=== PATIENT | male | born 1965 | race Caucasian/White ===

== ENCOUNTER 2016-09-30 15:04 | Inpatient (IN) ==
[2016-09-30] MEDS ORDERED: NS 1,000 ML IV ONE ×2 (15:27→15:28)
[2016-09-30 16:03] LABS: BASO% 0.2 % (0.0-0.8); EOS# 0.03 X1000 (0.0-0.7); EOS% 0.2 % (0.0-10.0); HEMATOCRIT 40.7 % (42.0-52.0); IMM GRAN# 0.06 X1000 (0.0-0.04); IMM GRAN% 0.3 % (0.0-0.5); LYMPH# 0.62 X1000 (1.2-3.4); LYMPH% 3.3 % (20.5-51.1); MANUAL DIFF NEEDED? NO; MCH 30.8 PG (27-31); MCHC 34.4 g/dL (33-37); MCV 89.6 FL (81-99); MONO# 1.56 X1000 (0.11-0.59); MONO% 8.2 % (1.7-9.3); MPV 10.2 FL (7.4-10.4); NEUT% 87.8 % (42.2-75.2); PLT 335 X1000 (130-400); RBC 4.54 XMIL (4.7-6.1)
[2016-09-30 16:20] LABS: AGAP 13; ALKALINE PHOSPHATASE 80 U/L (32-122); AMYLASE 26 U/L (20-200); BUN 29 mg/dL (8-22); CALCIUM 10.2 mg/dL (8.8-10.2); CHLORIDE 95 mmol/L (98-107); COSMO 279; GOT 14 U/L (10-34); GPT 7 U/L (10-44); LIPASE 22 U/L (13-60); POTASSIUM 3.6 mmol/L (3.5-5.1); SODIUM 136 mmol/L (136-145); TCO2 29 mmol/L (25-35); TOTAL PROTEIN 7.5 g/dL (6.3-8.3)
[2016-09-30 17:11] LABS: UR AMPHETAMINES QUAL NONE DETECTED (NONE DETECT); UR BARBITUATES QUAL NONE DETECTED (NONE DETECT); UR BENZODIAZEPIN QUAL NONE DETECTED (NONE DETECT); UR CANNABINOIDS QUAL NONE DETECTED (NONE DETECT); UR COCAINE QUAL NONE DETECTED (NONE DETECT); UR MDMA QUAL NONE DETECTED (NONE DETECT); UR METHADONE QUAL NONE DETECTED (NONE DETECT); UR METHAMPHETAMINE QUAL NONE DETECTED (NONE DETECT); UR OPIATES QUAL NONE DETECTED (NONE DETECT); UR OXYCODONE QUAL NONE DETECTED (NONE DETECT); UR PCP QUAL NONE DETECTED (NONE DETECT); UR TCA QUAL NONE DETECTED (NONE DETECT)
[2016-09-30 17:14] LABS: BILIRUBIN URINE NEGATIVE (NEGATIVE); BLOOD URINE NEGATIVE (NEGATIVE); CLARITY SL. CLOUDY (CLEAR); COLOR YELLOW; GLUCOSE URINE NEGATIVE (NEGATIVE); LEUKOCYTES URINE TRACE (NEGATIVE); NITRITE URINE NEGATIVE (NEGATIVE); PH URINE 6.5; PROTEIN URINE 2+(100 mg/dL) mg/dL (NEGATIVE); UROBILINOGEN URINE 4+(12 mg/dL)
[2016-09-30 17:17] LABS: URINE RBC <10 /HPF (<10); URINE WBC <10 /HPF (<10)
[2016-09-30 17:18] LABS: URINE CAST GRANULAR PRESENT /LPF; URINE CRYSTAL NONE SEEN /HPF; URINE CULTURE PL NEEDED? YES; URINE EPITHELIAL CELLS <10 /HPF (<10); URINE SOURCE CLEAN CATCH
--- NOTE | 2016-09-30 17:20 | EKG Report ---
Test Performed on : 09/30/2016 4:02:46 PM Test Reason : SOB Blood Pressure : / mmHG Vent. Rate : 093 BPM Atrial Rate : 096 BPM P-R Int : 140 ms QRS Dur : 098 ms QT Int : 362 ms P-R-T Axes : 085 083 075 degrees QTc Int : 450 ms Undetermined rhythm Otherwise normal ECG No previous ECGs available Unconfirmed Result
--- NOTE | 2016-09-30 17:40 | PROVIDER DOCUMENTATION ---
This chart was entered by Kulwant Burks Scribe, acting as scribe for Codey Alcantara MD. HPI-Abdominal Pain/GI Problem - General Chief Complaint: N/V/D Stated Complaint: SOB Time Seen by Provider: 09/30/16 15:26 Source: patient Allergies/Adverse Reactions: Patient Allergies Allergy/AdvReac Type Severity Reaction Status Date / Time No Known Allergies Allergy Verified 09/30/16 15:18 Home Medications: Home Medication List Medication Instructions Recorded Confirmed Last Taken Type NK [No Home Medications] 09/30/16 09/30/16 Unknown History - History of Present Illness-ABD Nature of Presenting Problems: Patient is a 51 yo M that presents with n/v/d, abdominal pain, fever/chills, and weight loss for a year but worse over the past month. hasn't seen a MD in 20 years. Reports no chest pain, shortness of breath, or cough. Abdominal Pain Onset Location: reports: generalized abdomen Quality of Pain: reports: aching, cramping Severity in ED: reports: moderate Onset/Duration: reports: gradual, other (months to a year) Timing: reports: still present, getting worse (past month) Activities at Onset: reports: none Modifying Factors: worse with: eating Associated Symptoms: reports: diarrhea, fatigue, fever/chills, malaise, muscle aches, nausea, vomiting. denies: chest pain, constipation, diaphoresis, dizziness, EENT symptoms, shortness of breath Similar Symptoms Previously?: No Recently seen or treated by another doctor?: No Review of Systems - Adult - REVIEW OF SYSTEMS - ADULT Constitutional: reports: chills, fever, fatique Eyes: reports: no symptoms reported Ears, Nose, Mouth & Throat: denies: ear pain, sinus problem, throat pain, throat swelling Cardiovascular: denies: chest pain, palpitations, syncope Respiratory: denies: cough, shortness of breath, wheezing Gastrointestinal: reports: abdominal pain, diarrhea, nausea, poor appetite, vomiting. denies: rectal bleeding Genitourinary: denies: dysuria, frequency, urgency Musculoskeletal: reports: joint pain, muscle aches, muscle weakness. denies: neck pain Integumentary: reports: no symptoms reported Neurological: reports: headache/migraines. denies: dizziness/vertigo Psychiatric: reports: no symptoms reported Endocrine: reports: no symptoms reported Hematologic/Lymphatic: reports: no symptoms reported Allergic/Immunologic: reports: no symptoms reported All Other Systems: Reviewed and Negative Past History - Adult - PAST MEDICAL HISTORY-ADULT Review of Records: reports: Old Records Reviewed, Nursing Assessment Review, Medications Reviewed - PRIOR SURGERIES/PROCEDURES Surgical/Procedure History: reports: reviewed, not pertinent - IMMUNIZATION STATUS Childhood Immunizations: See Nurse Assessment Flu Vaccine: See Nurse Assessment - FAMILY HISTORY Family History: reviewed, not pertinent - SOCIAL HISTORY Smoking: cigarettes, less than 1 pack/day Substance Use: marijuana Alcohol Use Frequency: occasionally Living Situation: family Physical Exam-General - PHYSICAL EXAM-ADULT Initial Vital Signs Reviewed: Yes - CONSTITUTIONAL General Appearance: alert, mild distress, thin (very), other (ill appearing) - EYES Eyes: PERRL/EOMI, pink conjunctivae - HEAD, EARS, NOSE, MOUTH & THROAT HENMT: normocephalic/atraumatic, other (poor dental hygiene, dry oral mucosa) - NECK Neck: full range of motion, normal inspection - RESPIRATORY Respiratory: lungs clear, normal breath sounds, no respiratory distress, no accessory muscle use - CARDIOVASCULAR Cardiovascular: no edema, no gallop, tachycardia - GASTROINTESTINAL (ABDOMEN) Abdominal Exam: normal bowel sounds, soft, no organomegaly, no pulsatile mass, guarding, tenderness (diffusley with soft touch) - MUSCULOSKELETAL Back Exam: no CVA tenderness, no vertebral tenderness Extremity: normal range of motion, normal inspection, no pedal edema - SKIN Integumentary: normal color, warm/dry - NEUROLOGIC Neurologic: toy stuffer II-XII nml as tested, no motor/sensory deficits - PSYCHIATRIC Psych/Mental Status: normal mood/affect, normal thought content, normal thought process, oriented x 3 Progress - PLAN OF CARE/RESULTS Progress/Plan/Lab Results: Vital Signs - 8 hr 09/30/16 15:13 Temperature 97.4 F L Pulse Rate 117 H Respiratory Rate 20 Blood Pressure 116/093 O2 Sat by Pulse Oximetry 97 Orders Category Date Time Status Saline Loc DIRECTED Care 09/30/16 15:27 Active NPO Diet 09/30/16 15:27 Active AMYLASE [CHEM] Stat Lab 09/30/16 15:27 Ordered CBC WITH ELECTRONIC DIFF [HEME] Stat Lab 09/30/16 15:27 Ordered COMPREHENSIVE METABOLIC PANEL [CHEM] Stat Lab 09/30/16 15:27 Ordered D-DIMER PL [COAG] Stat Lab 09/30/16 15:36 Ordered LIPASE [CHEM] Stat Lab 09/30/16 15:27 Ordered TROPONIN T Stat Lab 09/30/16 15:[address] W/POSS RFLX CULT [URINALYSIS] Stat Lab 09/30/16 15:27 Uncollected URINE DRUG SCREEN PL Stat Lab 09/30/16 15:27 Uncollected 0.9% Sodium Chloride Inj [Ns] 1,000 ml Med 09/30/16 15:28 Active IV 250 mls/hr 0.9% Sodium Chloride Inj [Ns] 1,000 ml Med 09/30/16 15:27 Active IV 999 mls/hr EKG [EKG] Stat Ther 09/30/16 15:27 Ordered Result Diagrams: 09/30/16 15:48 09/30/16 15:48 - EKG 1 Time of EKG reading by physician:: 16:03 EKG Read and Signed by:: Codey Alcantara EKG Interpretation (*Must complete 3 of following elements*): Normal Rate: 91 Rhythm: NSR [place]: normal QRS: normal MT Interval: normal ST Wave: normal - CT/MRI 1 CT Study: Abdomen, Pelvis, Thorax Impression: Abnormal (Per Radiology verbal - perforated bowel with free air.) - CONSULTS/PCP/HOSPITALIST Notification #1 *Consult/PCP/Hospitalist*: Dr. Ramirez Time Discussed: 18:10 Consult Disposition: Will see in ED - CHANGE OF SHIFT REPORT (ED Provider) Report Given and Care Transferred to:: Dr. Pacheco Time of Transfer: 18:00 Items Pending: Labs, CT/MRI Results, Other (Dispo) Departure - Departure Date of Disposition Decision: 09/30/16 Time of Disposition Decision: 18:07 DIAGNOSIS: Perforated abdominal viscus Disposition: ADMITTED INPATIENT 09 Certified Medical Emergency: Emergent Condition: Serious Referrals and Follow-Ups: None,PCP [Primary Care Provider] - - Critical Care Note This patient required my direct & personal management of CC.: Yes Total Time (mins): 35 Critical Care Statement: This patient required my direct personal management to treat or rule out processes, the absence of which, could potentiallly result in sudden, clinically significant life or limb threatening deterioration. This chart was documented by the indicated scribe, (Kulwant Burks, Scribe) and accurately reflects the services I performed and decisions made by me, Codey Alcantara MD, as attested by the provider's signature.
--- NOTE | 2016-09-30 18:05 | Diag Imaging Result Doc PS360 ---
EXAM: ABD/PELVIS/PULM ARTERIES INDICATION: Abd pain/CP/wt loss/N/V/D TECHNIQUE: COMPARISON: None. FINDINGS: CTA CHEST: There is no evidence of pulmonary embolism. There is trace atherosclerotic calcification of the aortic arch. There is no evidence of aortic aneurysm or dissection. The heart is not enlarged. There is no evidence of significant mediastinal or hilar lymphadenopathy. There are mild emphysematous changes at the lung apices. There is mild biapical fibrotic change. The lungs are grossly clear, otherwise. There is no evidence of pleural fluid collection or pneumothorax. ABDOMEN/PELVIS: There is significant free abdominal gas throughout the abdomen consistent with hollow visceral perforation. The colon is distended with gas. The source of the extraluminal gas is likely the colon, probably in the pelvis. However, the exact perforation point cannot be determined. There are several other thickened loops of small bowel in the pelvis indicating enteritis. The liver, spleen, kidneys, and pancreas are unremarkable. IMPRESSION: 1.Extraluminal free gas in the abdomen indicating perforated viscus, likely the colon. Please see above discussion. 2.Gaseous distention of the colon. 3.Thickened loops of small bowel in the pelvis suggesting enteritis. 4.No evidence of pulmonary embolism or other definite acute chest pathology. 5.Other incidental/nonacute findings detailed above. Electronically signed by Seb Amos 09/30/2016 6:02 PM
[2016-09-30] MEDS ORDERED: ZOSYN 3.375 GM/NS 3.375 GM/50 ML IVPB IV ONE (18:06)
[2016-09-30] MEDS ORDERED: NS 1,000 ML ONE (18:11)
[2016-09-30] MEDS ORDERED: XYLOCAINE-MPF 2% ONE (18:42)
[2016-09-30] MEDS ORDERED: DIPRIVAN 1% ONE (18:43)
[2016-09-30] MEDS ORDERED: VERSED ONE (18:43)
[2016-09-30] MEDS ORDERED: FENTANYL ONE (18:43)
[2016-09-30] MEDS ORDERED: QUELICIN (DOSE) ONE (18:44)
[2016-09-30] MEDS ORDERED: NORCURON ONE (18:44)
[2016-09-30] MEDS ORDERED: SODIUM CHLORIDE 0.9% 10 ML ONE ×2 (18:46→20:30)
--- NOTE | 2016-09-30 18:57 | HISTORY AND PHYSICAL ---
ADMITTING DIAGNOSIS: Free air. HISTORY OF PRESENT ILLNESS: A 51-year-old male who has not seen a physician in 20 years, presenting with a several month history of abdominal pain that is worse in the last day. He reports intense pain in his left lower quadrant, that he described as aching and cramping. Again, it has been going on for months, but is getting progressively worse. He has not seen a physician in 20 years. He does have a family history of colon cancer. He has never had a colonoscopy. He never reports having pain in this intensity before he was seen in emergency department. He had a CT scan that showed free air concerning for perforation. PAST MEDICAL HISTORY: None reported. PAST SURGICAL HISTORY: None. ALLERGIES: None. HOME MEDICATIONS: None. FAMILY HISTORY: Positive for colon cancer and lung cancer. SOCIAL HISTORY: Smokes cigarettes. Denies recreational drugs besides marijuana. Says that he drinks alcohol occasionally. REVIEW OF SYSTEMS: A full 10 point review of systems obtained, negative except as specified in HPI. PHYSICAL EXAMINATION: VITAL SIGNS: The patient is currently afebrile. Temperature 97.4, pulse is tachycardic at 117, respiratory rate 20 and nonlabored. Blood pressure 116 systolic. O2 saturation 100% on room air. GENERAL: No acute distress. male, but appears uncomfortable. HEENT: Normocephalic, atraumatic. Pupils equal, round, reactive to light. Mucous membranes moist. Poor dentition noted. Oropharynx benign. NECK: Supple. Trachea midline. CARDIOVASCULAR: Tachycardic. LUNGS: Grossly clear. ABDOMEN: Soft, nondistended. Voluntary guarding noted. Tenderness to palpation in the left lower quadrant with localized peritonitis. EXTREMITIES: Moves all extremities. NEUROLOGIC: Grossly intact. SKIN: No signs of jaundice. VASCULAR: All extremities perfused. LABORATORY: White blood cell count is 18, hematocrit 40, platelet count 335. Remainder of labs reviewed. CT scan independently reviewed and radiology report reviewed. Patient does have what appears to be perforated hollow viscus. Given the findings on CT scan it is concerning this might be a perforated sigmoid colon. ASSESSMENT AND PLAN: A 51-year-old male with pneumoperitoneum. Pneumoperitoneum: At this time, patient has been started on antibiotics. Per the ER he has been started on Zosyn, will continue that. Given his free air and the concerning images on CT scan and his tachycardia, the patient is starting to develop sepsis in a septic like picture. We will need to transfer the patient over to [facility] for definitive treatment. I placed initial orders and returned to discuss with the patient the need for exploratory laparotomy with possible colostomy. He voices understanding. cc: Placido Ramirez MD
[2016-09-30] MEDS ORDERED: ZOFRAN ONE (20:29)
[2016-09-30] MEDS ORDERED: DECADRON ONE (20:29)
[2016-09-30] MEDS ORDERED: MARCAINE 0.25% PF ONE (20:30)
[2016-09-30] MEDS ORDERED: EXPAREL 1.3% ONE (20:30)
[2016-09-30] MEDS ORDERED: NEO-SYNEPHRINE ONE (21:06)
[2016-09-30 22:03] LABS: URINE SOURCE CLEAN CATCH
[2016-09-30] MEDS ORDERED: LR 1,000 ML ONE (22:19)
[2016-09-30] MEDS: MORPHINE ONE ×2 (22:20→22:27)
[2016-09-30 23:58] LABS: URINE EPITHELIAL CELLS <10 /HPF (<10); URINE RBC <10 /HPF (<10); URINE WBC <10 /HPF (<10)
[2016-09-30 23:59] LABS: BILIRUBIN URINE NEGATIVE (NEGATIVE); BLOOD URINE NEGATIVE (NEGATIVE); CLARITY CLEAR (CLEAR); COLOR YELLOW; GLUCOSE URINE NEGATIVE (NEGATIVE); LEUKOCYTES URINE NEGATIVE (NEGATIVE); NITRITE URINE NEGATIVE (NEGATIVE); PH URINE 6.5; PROTEIN URINE TRACE mg/dL (NEGATIVE); SP GRAVITY URINE > 1.030
[2016-10-01] MEDS ORDERED: ZOFRAN IV PRN (00:58)
[2016-10-01] MEDS: ZOSYN 3.375 GM/NS 3.375 GM/50 ML IVPB IV SCH ×4 (02:33→20:17)
[2016-10-01] MEDS: SODIUM CHLORIDE 0.9% INJ SCH ×2 (02:34→14:00)
[2016-10-01] MEDS: PEPCID IV SCH ×2 (02:34→13:59)
[2016-10-01] MEDS: OFIRMEV 1000 MG/ISOTONIC SOLN 1,000 MG/100 ML BOTTLE IV PRN ×2 (03:26→11:03)
[2016-10-01] MEDS: LR 1,000 ML IV SCH ×2 (03:30→11:02)
--- NOTE | 2016-10-01 05:56 | OPERATIVE NOTE ---
PROCEDURE DATE: 09/30/2016 PREOPERATIVE DIAGNOSIS: Perforated hollow viscus. POSTOPERATIVE DIAGNOSIS: Perforated sigmoid colon. PROCEDURE: 1. Exploratory laparotomy. 2. Open sigmoid resection with end colostomy (Demarco's procedure). SURGEON: Placido Ramirez MD. CONVERTER OPERATOR: None. ANESTHESIA: General tracheal. INTRAOPERATIVE FINDINGS: Inflamed sigmoid colon. Significant amount of purulence on examination noted in the abdomen. COMPLICATIONS: None at time of dictation. ESTIMATED BLOOD LOSS: 100 mL. SPECIMENS: Sigmoid colon. DRAINS: A 10-Irish drain left in the pelvis. BRIEF HISTORY: The patient is a 51-year-old male, who had not seen a doctor in 20 years, presenting to the ER in a septic-like picture with leukocytosis, tachycardia, and abdominal pain. Was found to have pneumoperitoneum, concerning for perforated hollow viscus and exam was consistent with this. It was felt that the patient needed to have surgery. The risks, benefits, and alternatives were discussed. All questions answered. DESCRIPTION OF PROCEDURE: After informed consent was obtained, the patient was brought to the operative theatre, transferred to operating table, placed in supine position. General endotracheal anesthesia was then performed without complications. A formal time-out was then performed confirming patient, date, and procedure. All were in agreement. At that time attention was given to the abdomen. A standard midline incision was made to enter into the abdomen. Upon entering the abdomen, we did release significant amount pneumoperitoneum. We also encountered a significant amount of purulence, in excess of 200-300 mL of purulence. We irrigated out the abdomen copiously. We found dense fibrinous exudate of process occurring in the right lower quadrant and left lower quadrant. There is significant number of inflamed loops of small bowel stuck down to the sigmoid colon and also to the lateral wall. With blunt dissection we dissected out the small bowel from the sigmoid colon very carefully. We did not have any obvious enterotomies. We noticed the sigmoid colon was the area where the most intense inflammatory process was. We noticed what appeared to be a perforation on the lateral aspect of the sigmoid colon. We mobilized the sigmoid colon off the white line of Toldt, although we did this mostly both blunt dissection. I was unable to clearly identify the ureter, but I felt so I was able to feel it and preserved it in its entirety as best I could. Again, intense inflammatory process made this difficult. We mobilized the sigmoid colon all the way up to the splenic flexure. We selected an area of the sigmoid colon and in descending colon that appeared to be not significantly disease burden. We made a window in the mesocolon and fired a RAFI stapler across this to free this up. We then used the LigaSure to take down the mesentery, down to the sigmoid colon, down to the rectum. There was a perforation noted and we placed a stapler distal to this. There is initial misfire and we had to place a second staple across the rectal stump with good results. I oversewed the area and placed 2 Prolene stitches on the lateral aspect of the rectum for identification later. Given the dense inflammatory process and the friability of the tissue, and the concern that this rectal stump might perforate, we left a drain tunneled from the left lower quadrant down to the pelvis. We irrigated out the abdomen copiously. We examined the remainder the bowel. It appeared to be viable. I did not see any other disease burden. There was what initially felt like a dense inflammatory mass versus a colonic malignancy noted in the sigmoid colon. This appeared, once we had removed the specimen, to be more like the perforation, inflamed tissue. No after we irrigated out the abdomen copiously, we found a position the left lower quadrant for an ostomy. At the lateral border of the rectus we made a circular skin incision and were able to make a window in the abdominal wall that enough size to accommodate 2 fingerbreadths. We then brought the sigmoid colon proximal end up through this without twisting it. We confirmed we did not twist it. We closed the abdomen in layers using chromic for the peritoneum and looped PDS for the fascia. We irrigated out the skin incision and closed with ray. We secured the drain in place with a drain stitch. We then created and matured our ostomy in the left lower quadrant with 3-0 Vicryl with good results. It was patent. I was able to stick my finger all the way through the ostomy, down through the fascia. There was good blood supply noted. The patient tolerated procedure well and remained in the operating room for anesthesia place a tap block postoperatively. We will manage him like a sepsis-like picture. Keep him on IV antibiotics. Keep him resuscitated. I discussed this with the family and the potential for complications, given the dense inflammatory process. cc: Placido Ramirez MD
[2016-10-01 06:21] LABS: BASO% 0.2 % (0.0-0.8); HEMATOCRIT 37.1 % (42.0-52.0); HEMOGLOBIN 12.8 g/dL (14.0-18.0); IMM GRAN# 0.09 X1000 (0.0-0.04); IMM GRAN% 0.5 % (0.0-0.5); LYMPH# 0.34 X1000 (1.2-3.4); LYMPH% 1.9 % (20.5-51.1); MANUAL DIFF NEEDED? NO; MCH 31.2 PG (27-31); MCHC 34.5 g/dL (33-37); MCV 90.5 FL (81-99); MONO# 1.12 X1000 (0.11-0.59); MONO% 6.2 % (1.7-9.3); MPV 10.6 FL (7.4-10.4); NEUT% 91.2 % (42.2-75.2); PLT 341 X1000 (130-400)
--- NOTE | 2016-10-01 06:23 | PROGRESS NOTE ---
DATE: 10/01/2016 SUBJECTIVE: Patient doing okay. Feels better since his operation. No major issues reported. OBJECTIVE: Vital Signs: Patient is currently afebrile. His vital signs are stable. General: No acute distress. Resting comfortably in bed. NG tube in place. Cardiovascular: Regular rate and rhythm. Lungs: Grossly clear. Abdomen: Soft, appropriately tender. Ostomy appears viable but edematous. Only serosanguineous fluid in the ostomy appliance. Midline incision with dressing in place. LABORATORY: Currently pending. ASSESSMENT AND PLAN: A 51-year-old male, postoperative day #1 from Demarco's procedure for perforated sigmoid colon. 1. Postoperative state. At this time, we will keep the NG tube. We will await return of bowel function. I will keep him on IV antibiotics given his gross contamination. Keep his Kian- Brito drain in place. I suspect there is a high degree of chance that he could have an abscess develop, so we will need to keep him on at least 2 weeks of antibiotics. 2. Severe protein malnutrition. At this time, patient has not eaten anything for a week going into this procedure. We will get a peripherally inserted central catheter line placed and start the patient on total parenteral nutrition, because I suspect he will have some delay in return of his bowel function given the inflammatory response in his abdomen. cc: Placido Ramirez MD
[2016-10-01 07:02] LABS: INR 1.09; PROTIME 11.5 Seconds (9.2-11.7)
[2016-10-01 07:14] LABS: AGAP 14; BUN 22 mg/dL (8-22); CALCIUM 8.1 mg/dL (8.8-10.2); CHLORIDE 100 mmol/L (98-107); COSMO 282; POTASSIUM 4.2 mmol/L (3.5-5.1); SODIUM 139 mmol/L (136-145); TCO2 25 mmol/L (25-35)
[2016-10-01] MEDS ORDERED: NS 250 ML ONE (09:47)
[2016-10-01] MEDS: HEPARIN SUBQ SCH ×2 (11:03→17:04)
[2016-10-01] MEDS: PERIDEX MT SCH ×2 (11:04→20:16)
[2016-10-01 13:22] LABS: AGAP 12; BUN 22 mg/dL (8-22); CALCIUM 8.2 mg/dL (8.8-10.2); CHLORIDE 99 mmol/L (98-107); COSMO 276; GOT 17 U/L (10-34); MAGNESIUM 1.8 mg/dL (1.5-2.7); POTASSIUM 4.1 mmol/L (3.5-5.1); PREALBUMIN < 3.0 mg/dL (20-40); SODIUM 136 mmol/L (136-145); TCO2 25 mmol/L (25-35); TRIGLYCERIDES 74 mg/dL (39-160)
[2016-10-01] MEDS ORDERED: CLINIMIX E 4.25%-5% SOLUTION 1,000 ML IV SCH (13:35)
[2016-10-01] MEDS: NS 1,000 ML IV SCH (14:27)
[2016-10-01] MEDS: CHLORASEPTIC SPRAY MT PRN (17:03)
[2016-10-01] MEDS ORDERED: BLISTEX MEDICATED BERRY LIP BALM TOP PRN (17:10)
[2016-10-01] MEDS: MORPHINE IV PRN (22:17)
[2016-10-02] MEDS: SODIUM CHLORIDE 0.9% INJ SCH ×2 (00:44→13:32)
[2016-10-02] MEDS: HEPARIN SUBQ SCH ×3 (00:44→16:57)
[2016-10-02] MEDS: MORPHINE IV PRN ×5 (00:45→22:04)
[2016-10-02] MEDS: PEPCID IV SCH ×2 (00:45→13:32)
[2016-10-02] MEDS: ZOSYN 3.375 GM/NS 3.375 GM/50 ML IVPB IV SCH ×4 (01:42→22:04)
[2016-10-02] MEDS: NS 1,000 ML IV SCH ×2 (01:42→13:34)
[2016-10-02 06:10] LABS: AGAP 8; BUN 18 mg/dL (8-22); CALCIUM 8.2 mg/dL (8.8-10.2); CHLORIDE 102 mmol/L (98-107); COSMO 278; MAGNESIUM 1.9 mg/dL (1.5-2.7); POTASSIUM 3.5 mmol/L (3.5-5.1); SODIUM 138 mmol/L (136-145); TCO2 28 mmol/L (25-35)
[2016-10-02] MEDS: PERIDEX MT SCH ×2 (08:26→22:05)
[2016-10-02] MEDS ORDERED: POTASSIUM PHOSPHATE 20 MMOL in NS 250 ML IV ONE (08:30)
[2016-10-02] MEDS ORDERED: D10W 1,000 ML IV SCH (15:45)
[2016-10-02] MEDS: LIPOSYN 20% 250 ML IV SCH (16:55)
[2016-10-02] MEDS: TPN ELECTROLYTES 20 ML, MAGNESIUM SULFATE 4 MEQ, POTASSIUM CHLORIDE 20 MEQ, SODIUM PHOS... IV SCH ×8 (16:56)
[2016-10-03] MEDS: SODIUM CHLORIDE 0.9% INJ SCH ×2 (01:02→16:48)
[2016-10-03] MEDS: ZOSYN 3.375 GM/NS 3.375 GM/50 ML IVPB IV SCH ×5 (01:02→21:18)
[2016-10-03] MEDS: MORPHINE IV PRN ×6 (01:02→22:34)
[2016-10-03] MEDS: PEPCID IV SCH ×2 (01:02→16:47)
[2016-10-03] MEDS: HEPARIN SUBQ SCH ×3 (01:02→16:47)
[2016-10-03] MEDS: NS 1,000 ML IV SCH ×3 (04:26→23:55)
[2016-10-03 06:12] LABS: AGAP 5; BUN 14 mg/dL (8-22); CALCIUM 7.9 mg/dL (8.8-10.2); CHLORIDE 104 mmol/L (98-107); COSMO 278; POTASSIUM 3.3 mmol/L (3.5-5.1); SODIUM 138 mmol/L (136-145); TCO2 29 mmol/L (25-35)
[2016-10-03] MEDS ORDERED: POTASSIUM PHOSPHATE 20 MMOL in NS 250 ML IV ONE (09:00)
[2016-10-03] MEDS: PERIDEX MT SCH ×2 (09:53→20:39)
[2016-10-03] MEDS: LIPOSYN 20% 250 ML IV SCH (16:45)
[2016-10-03] MEDS: TPN ELECTROLYTES 20 ML, MAGNESIUM SULFATE 4 MEQ, POTASSIUM CHLORIDE 20 MEQ, SODIUM PHOS... IV SCH ×8 (18:11)
[2016-10-04] MEDS: HEPARIN SUBQ SCH ×4 (00:51→23:43)
[2016-10-04] MEDS: MORPHINE IV PRN ×7 (00:52→23:43)
[2016-10-04] MEDS: PEPCID IV SCH ×3 (01:07→23:43)
[2016-10-04] MEDS: SODIUM CHLORIDE 0.9% INJ SCH ×3 (01:32→23:43)
[2016-10-04] MEDS: ZOSYN 3.375 GM/NS 3.375 GM/50 ML IVPB IV SCH ×4 (04:45→21:06)
--- NOTE | 2016-10-04 06:17 | PROGRESS NOTE ---
DATE: 10/04/2016 SUBJECTIVE: Patient doing okay. He does report some numbness down his left leg but has motor intact. He is still reporting some nausea. He has not had any output out of his colostomy. OBJECTIVE: Vital Signs: Patient is currently afebrile. His vital signs are stable. General Examination: No acute distress. Resting comfortably. Cardiovascular: Regular rate and rhythm. Lungs: Grossly clear. Abdomen: Soft and nondistended. Hypoactive bowel sounds. Incision is healing well. Ostomy is doing okay. Appears viable. Is and Os: NG tube has over a liter recorded out. SOCORRO drain has 35 of serosanguineous reported out. ASSESSMENT AND PLAN: A 51-year-old, male, postoperative day #4 from Demarco's procedure for perforated sigmoid colon. 1. Postoperative state. At this time, we will keep the patient's nasogastric tube. I suspect he still has a significant postoperative ileus. We will await return of bowel function and continue to support him with total parenteral nutrition and keep him on his intravenous antibiotics. 2. Severe protein malnutrition. At this time, the patient is not able to take oral. This will total approximately about a week. We will need to keep him on his total parenteral nutrition. 3. Deconditioning. At this time, we will ask physical therapy to see him. He does have some numbness in his left leg but is motor intact. I suspect this might be related to the Exparel injection. We will monitor for now. cc: Placido Ramirez MD
[2016-10-04] MEDS: NS 1,000 ML IV SCH ×3 (06:35→16:44)
[2016-10-04 07:11] LABS: AGAP 7; BUN 11 mg/dL (8-22); CALCIUM 8.1 mg/dL (8.8-10.2); CHLORIDE 103 mmol/L (98-107); COSMO 274; MAGNESIUM 2.1 mg/dL (1.5-2.7); POTASSIUM 3.4 mmol/L (3.5-5.1); SODIUM 137 mmol/L (136-145); TCO2 27 mmol/L (25-35)
[2016-10-04] MEDS ORDERED: PNEUMOVAX 23 IM ONE (08:30)
[2016-10-04] MEDS: PERIDEX MT SCH ×2 (09:28→21:06)
[2016-10-04 09:48] LABS: ALBUMIN 2.1 g/dL (3.5-5.0); ALKALINE PHOSPHATASE 63 U/L (32-122); DIRECT BILIRUBIN < 0.20 mg/dL (0.00-0.20); GOT 21 U/L (10-34); GPT 7 U/L (10-44); TOTAL BILIRUBIN 0.22 mg/dL (0.20-1.00); TOTAL PROTEIN 5.1 g/dL (6.3-8.3)
[2016-10-04] MEDS: TPN ELECTROLYTES 20 ML, MAGNESIUM SULFATE 4 MEQ, POTASSIUM CHLORIDE 25 MEQ, SODIUM PHOS... IV SCH ×8 (16:40)
[2016-10-04] MEDS: LIPOSYN 20% 250 ML IV SCH (16:40)
[2016-10-05] MEDS: MORPHINE IV PRN ×4 (04:01→19:49)
[2016-10-05] MEDS: ZOSYN 3.375 GM/NS 3.375 GM/50 ML IVPB IV SCH ×4 (04:02→21:57)
[2016-10-05] MEDS: PEPCID IV SCH ×2 (06:10→13:21)
[2016-10-05] MEDS: SODIUM CHLORIDE 0.9% INJ SCH ×2 (06:10→13:21)
[2016-10-05 06:28] LABS: AGAP 9; BUN 10 mg/dL (8-22); CALCIUM 7.7 mg/dL (8.8-10.2); CHLORIDE 100 mmol/L (98-107); COSMO 272; MAGNESIUM 2.1 mg/dL (1.5-2.7); POTASSIUM 3.4 mmol/L (3.5-5.1); SODIUM 136 mmol/L (136-145); TCO2 27 mmol/L (25-35)
--- NOTE | 2016-10-05 06:39 | PROGRESS NOTE ---
DATE: 10/05/2016 SUBJECTIVE: Patient doing okay. Still reports some numbness down his left leg but his motor is intact. He did try to get up with physical therapy but apparently had some weakness in his legs. He reports some nausea. No ostomy output reported. OBJECTIVE: Vital Signs: Patient is currently afebrile. His vital signs are stable. SOCORRO drain had 30 mL of serosanguineous output recorded. General: No acute distress. Cardiovascular: Regular rate and rhythm. Lungs: Grossly clear. Abdomen: Soft, nondistended. Hypoactive bowel sounds. Incision is healing well. Ostomy is doing okay. Appears viable. ASSESSMENT/PLAN: A 51-year-old male, postoperative day #5 from Demarco's procedure for perforated sigmoid colon. 1. Postoperative state: At this time, we will keep the patient's nasogastric tube. I suspect he is still having severe postoperative ileus. We will await return of bowel function and keep him on total parenteral nutrition. 2. Severe protein malnutrition: At this time, patient is not able to take oral intake. We will keep him on total parenteral nutrition. 3. Deconditioning: At this time, patient is willing to work with physical therapy. We will continue to monitor. 4. Left leg numbness: I suspect at this time, it is related to his Exparel injection. If it persists I will ask Neurology to see the patient in the morning. He has no other lateralizing symptoms that I can assess at this time and he does have intact motor. cc: Placido Ramirez MD
[2016-10-05] MEDS: NS 1,000 ML IV SCH ×2 (06:40→17:38)
[2016-10-05] MEDS: HEPARIN SUBQ SCH ×2 (09:04→15:35)
[2016-10-05] MEDS: PERIDEX MT SCH ×2 (09:04→21:57)
[2016-10-05] MEDS: TPN ELECTROLYTES 20 ML, MAGNESIUM SULFATE 4 MEQ, POTASSIUM CHLORIDE 25 MEQ, SODIUM PHOS... IV SCH ×8 (17:38)
[2016-10-05] MEDS: LIPOSYN 20% 250 ML IV SCH (17:38)
[2016-10-05] MEDS: CHLORASEPTIC SPRAY MT PRN (22:05)
[2016-10-06 01:17] LABS: AGAP 9; BUN 9 mg/dL (8-22); CALCIUM 7.7 mg/dL (8.8-10.2); CHLORIDE 102 mmol/L (98-107); COSMO 272; GOT 21 U/L (10-34); MAGNESIUM 2.1 mg/dL (1.5-2.7); POTASSIUM 3.3 mmol/L (3.5-5.1); SODIUM 136 mmol/L (136-145); TCO2 25 mmol/L (25-35); TRIGLYCERIDES 103 mg/dL (39-160)
[2016-10-06] MEDS: SODIUM CHLORIDE 0.9% INJ SCH ×2 (01:56→15:17)
[2016-10-06] MEDS: HEPARIN SUBQ SCH ×3 (01:56→17:50)
[2016-10-06] MEDS: PEPCID IV SCH ×2 (01:56→15:17)
[2016-10-06 02:26] LABS: PREALBUMIN 5.8 mg/dL (20-40)
[2016-10-06] MEDS: ZOSYN 3.375 GM/NS 3.375 GM/50 ML IVPB IV SCH ×4 (04:30→21:01)
[2016-10-06] MEDS: MORPHINE IV PRN ×4 (04:30→21:01)
[2016-10-06] MEDS: NS 1,000 ML IV SCH ×2 (06:28→17:49)
[2016-10-06] MEDS: PERIDEX MT SCH ×2 (08:22→21:01)
--- NOTE | 2016-10-06 08:25 | PROGRESS NOTE ---
DATE: 10/06/2016 SUBJECTIVE: The patient is doing okay. He still reports numbness down his left leg but his motor is still intact. He does not report really any significant nausea. No real ostomy output recorded. OBJECTIVE: Vital Signs: Patient is currently afebrile. His vital signs are stable. SOCORRO drain had serosanguineous output. General: In no acute distress. Cardiovascular: Regular rate and rhythm. Lungs are grossly clear. Abdomen is soft, nondistended. Incision is healing well. Ostomy looks okay. Motor appears to be intact to the left lower extremity. ASSESSMENT AND PLAN: A 51-year-old male, postoperative day #6, from Demarco's procedure for perforated sigmoid colon. 1. Postoperative state at this time. I will keep the patient's NG tube but clamp it and start him on clear liquids and see how he does. 2. Severe protein malnutrition. At this time, patient is on total parenteral nutrition. 3. Deconditioning. At this time, the patient has continued to work with physical therapy. 4. Left leg numbness. At this time, I think it might be related to his Exparel injection, but I will get a consult from Neurology to see him. cc: Placido Ramirez MD
--- NOTE | 2016-10-06 15:06 | CONSULTATION ---
DATE OF CONSULTATION: 10/06/2016 HISTORY OF PRESENT ILLNESS: Mr. Galvez is 51 years old. He had surgery 2016 to manage perforated sigmoid colon. He reports noticing numbness in the left leg and inability to elevate his left leg after that. He has not noticed any progression since then. He reports good power in the right leg. He notices the numbness in the left leg to be mostly medial aspect. He can move his left foot, but cannot raise his left leg at the thigh, by his report. He reports no significant back pain. He reports no previous left leg weakness or other neurological or neuromuscular problem. He presented with abdominal pain and workup showed evidence of perforated viscus. That was managed surgically about a week ago, as above. He has done well from a surgical standpoint. PAST HISTORY: Reported as unremarkable. SOCIAL HISTORY: He smokes cigarettes. OBJECTIVE: On exam, Mr. Galvez is awake and alert. He has good power in the arms and on careful testing in the right leg. I can overcome the left iliopsoas, grading 2/5, quadriceps 3/5, and no other definite weakness. He has good power in the left anterior tibialis and gastrocnemius. He reports diminished pinprick appreciation over the left leg medially, extending from just above the ankle to about T4-T6. There is some inconsistency at the superior and inferior margins, but he has very consistent anterior and posterior margins in the left leg. Straight leg raising is negative. IMPRESSION: The sensory findings are equivocal. The most consistent features suggest anterior femoral and saphenous peripheral nerve involvement, but the proximal extent raises the question of myelopathy. Myelopathy should not produce numbness and weakness in the same leg. Therefore, I suspect this is femoral neuropathy with the proximal sensory findings across the trunk related to recent abdominal surgery and not related to the leg numbness. We will plan nerve conduction study and further plans will depend on that report. Thanks for asking me to see Mr. Galvez. cc: MD Placido Santos III, MD MTDD
[2016-10-06] MEDS: LIPOSYN 20% 250 ML IV SCH (17:48)
[2016-10-06] MEDS: TPN ELECTROLYTES 20 ML, MAGNESIUM SULFATE 4 MEQ, POTASSIUM CHLORIDE 30 MEQ, SODIUM PHOS... IV SCH ×9 (17:49)
[2016-10-07] MEDS: HEPARIN SUBQ SCH ×3 (00:52→16:52)
[2016-10-07] MEDS: SODIUM CHLORIDE 0.9% INJ SCH ×2 (00:52→15:22)
[2016-10-07] MEDS: PEPCID IV SCH ×2 (00:52→15:22)
[2016-10-07] MEDS: ZOSYN 3.375 GM/NS 3.375 GM/50 ML IVPB IV SCH ×4 (04:35→22:07)
[2016-10-07] MEDS: MORPHINE IV PRN ×6 (04:36→22:07)
[2016-10-07] MEDS: NS 1,000 ML IV SCH ×4 (05:04→17:13)
--- NOTE | 2016-10-07 06:32 | PROGRESS NOTE ---
DATE: 10/07/2016 SUBJECTIVE: Patient doing okay. Still has some numbness. I read the note from Neurology. I appreciate their input. The patient still has some nausea. No real ostomy output recorded. OBJECTIVE: Vital Signs: Patient is currently afebrile. His vital signs are stable. SOCORRO drain has minimal serosanguineous output. General: No acute distress. Cardiovascular: Regular rate and rhythm. Lungs: Grossly clear. Abdomen: Soft, nondistended. Incision is healing well. Ostomy looks okay. Digitized the ostomy. It was somewhat tight, but I was able to get my pinky on the way through the fascia and did release some gas. The mucosa appears to be viable. Extremities: Motor appears to be intact in the left lower extremity. ASSESSMENT AND PLAN: A 51-year-old male, postoperative day #7 from Demarco's procedure for perforated sigmoid colon. 1. Postoperative state: At this time, we will keep the patient's tube clamped and continue clear liquid diet. I suspect he still has a significant postoperative ileus given all the inflammatory process that was occurring in his abdomen and significant amount of contamination. 2. Severe protein malnutrition: At this time, patient is still on total parenteral nutrition. 3. Deconditioning: At this time, patient needs to continue to work with Physical Therapy. I know he is somewhat hesitant to mobilize but I think this would be the best thing. 4. Left leg numbness: At this time, patient has been evaluated by Neurology. There is potential for nerve conduction study by their note. We will follow up with the results and recommendations. cc: Placido Ramirez MD
[2016-10-07] MEDS: PERIDEX MT SCH ×2 (10:23→22:07)
[2016-10-07 11:22] LABS: AGAP 5; BUN 7 mg/dL (8-22); CHLORIDE 105 mmol/L (98-107); COSMO 276; GOT 25 U/L (10-34); MAGNESIUM 2.2 mg/dL (1.5-2.7); SODIUM 139 mmol/L (136-145); TCO2 29 mmol/L (25-35); TRIGLYCERIDES 68 mg/dL (39-160)
[2016-10-07 11:44] LABS: PREALBUMIN 8.4 mg/dL (20-40)
--- NOTE | 2016-10-07 14:25 | PROGRESS NOTE ---
DATE: 10/07/2016 SUBJECTIVE: Mr. Galvez looks about the same. He reports no significant pain in the left hip or leg or in the lower back. OBJECTIVE: Clinical findings are unchanged. Passive left hip rotation is not uncomfortable. Straight leg raising is not uncomfortable. Left foot is warm. There is no new sensory finding today compared to yesterday. He has good pinprick appreciation over the left scrotum and perineum. Left iliopsoas power is 1/5. Left patellar reflex is absent, right patellar reflex 2+. Nerve conduction yesterday showed evidence of isolated left femoral neuropathy. Needle EMG showed some voluntary motor units in the left quadriceps. IMPRESSION: Isolated incomplete left femoral mononeuropathy, uncertain etiology. Possible explanations discussed with Dr. Ramirez. Knee instability will be an issue with walking and physical therapy. cc: MD Placido Santos III, MD MTDD
--- NOTE | 2016-10-07 15:12 | Diag Imaging Result Doc PS360 ---
EXAM: CT ABD/PELVIS W/ IV CONT ONLY INDICATION: Rule out Retroperitoneal hematoma TECHNIQUE: Dose reduction protocol was used. COMPARISON: 09/30/2016 FINDINGS: There has been an interval partial colectomy. There is now a left colostomy that appears to be patent. There are multiple loculated fluid collections interdigitating between loops of bowel, most of which contain small droplets of gas. For reference, there is a loculated fluid collection in the left lower quadrant along the anterolateral aspect of the abdomen that measures up to 7.0 x 3.5 cm axially. There are similar fluid collections at the anterior aspect of the right lower quadrant and adjacent to the posterior inferior aspect of the right hepatic lobe. The densities of these fluid collections are fairly low. Nonetheless, they're worrisome for developing abscess/phlegmon. There is a drainage catheter in the pelvis posteriorly. There is no evidence of retroperitoneal hematoma. There are moderately distended loops of colon and small bowel most compatible with postsurgical ileus. The remainder of the solid viscera of the abdomen and pelvis are essentially stable as compared to the previous study. Anterior skin ray are noted at the midline. There are partially imaged pleural effusions that are at least moderate in size and there is bibasilar atelectasis. IMPRESSION: 1.Multiple loculated fluid collections interdigitating between loops of bowel throughout the abdomen as described. Developing abscess/phlegmon cannot be excluded. 2.Interval partial colon resection and several distended loops of bowel that probably represents postsurgical ileus. The new colostomy appears to be patent. 3.Interval development of at least moderate size bilateral pleural effusions with adjacent bibasilar atelectasis. 4.No evidence of significant retroperitoneal hematoma. Electronically signed by Seb Amos 10/07/2016 3:10 PM
[2016-10-07] MEDS: TPN ELECTROLYTES 20 ML, MAGNESIUM SULFATE 4 MEQ, POTASSIUM CHLORIDE 30 MEQ, SODIUM PHOS... IV SCH ×9 (16:52)
[2016-10-07] MEDS: LIPOSYN 20% 250 ML IV SCH (16:52)
[2016-10-08] MEDS: HEPARIN SUBQ SCH ×3 (00:18→16:16)
[2016-10-08] MEDS: SODIUM CHLORIDE 0.9% INJ SCH (00:18)
[2016-10-08] MEDS: PEPCID IV SCH ×2 (00:18→12:15)
[2016-10-08] MEDS: MORPHINE IV PRN ×8 (00:19→22:19)
[2016-10-08] MEDS: ZOSYN 3.375 GM/NS 3.375 GM/50 ML IVPB IV SCH ×4 (03:34→21:04)
[2016-10-08] MEDS: NS 1,000 ML IV SCH (03:39)
[2016-10-08 06:14] LABS: AGAP 6; BUN 8 mg/dL (8-22); CALCIUM 7.9 mg/dL (8.8-10.2); CHLORIDE 105 mmol/L (98-107); COSMO 277; MAGNESIUM 2.1 mg/dL (1.5-2.7); POTASSIUM 3.3 mmol/L (3.5-5.1); SODIUM 139 mmol/L (136-145); TCO2 28 mmol/L (25-35)
--- NOTE | 2016-10-08 06:22 | PROGRESS NOTE ---
DATE: 10/08/2016 SUBJECTIVE: Patient doing okay. Reports some air passing out of his ostomy. He feels less nauseated with his NG tube clamped. I had a lengthy discussion with Dr. Cain with Neurology. We ordered a CT scan to rule out possible retroperitoneal hematoma causing femoral nerve impingement. CT scan did not seem to suggest that. The nerve conduction studies were read and showed some degree of isolated left femoral neuropathy. The etiology is still unclear. OBJECTIVE: Vital Signs: Patient is currently afebrile. His vital signs are stable. SOCORRO drain has minimal serosanguineous output. General: No acute distress. Cardiovascular: Regular rate and rhythm. Lungs: Grossly clear. Abdomen: Soft, nondistended. Incision is healing well. Ostomy looks okay. Mucosa appears viable. Extremities: Motor intact to the left lower extremity but numbness still present. ASSESSMENT AND PLAN: A 51-year-old male, postoperative day number 8 from Demarco's procedure for perforated sigmoid colon. 1. Postoperative state: At this time, will remove the patient's nasogastric tube and start on full liquid diet. I think his postoperative ileus is improving. He did have some fluid collections in his abdomen on the CT scan, which may be developing abscesses but at this time, we will keep him on IV antibiotics. 2. Severe protein malnutrition: At this time, patient is on total parenteral nutrition. I would like to keep him on total parenteral nutrition until he is actually able to tolerate essentially regular food. 3. Deconditioning: At this time, patient used to work with Physical Therapy. We will get a knee stabilizer to help with mobilization given his neuropathy. 4. Left femoral nerve neuropathy: At this time, I discussed the case extensively with Dr. Cain in Neurology. We will continue to evaluate to find an etiology, but at this time, the etiology is unclear. Again, we will put a knee brace on to help with mobilization. cc: Placido Ramirez MD
[2016-10-08] MEDS: PERIDEX MT SCH ×2 (08:46→20:09)
--- NOTE | 2016-10-08 11:57 | PROGRESS NOTE ---
DATE: 10/08/2016 Mr. Galvez reports no new problems. He does not have any definite recovery of strength in the left leg. CT scan did not show evidence of retroperitoneal hematoma or other specific explanation for the femoral neuropathy. In that case, he has reasonable prognosis to make spontaneous recovery over a period of time. I encouraged him to be very careful with activities, to be aggressive with his physical therapy, to have sensible diet and ensure adequate nutrition. I do not have any urgent suggestion now. Depending on his clinical course, we might consider repeating nerve conduction and EMG, if he does not seem clinically improved in the next few weeks to a month. Thanks for asking me to see Mr. Galvez. cc: MD Placido Santos III, MD
[2016-10-08 13:46] LABS: ALBUMIN 2.2 g/dL (3.5-5.0); DIRECT BILIRUBIN 0.2 mg/dL (0.00-0.20); TOTAL BILIRUBIN 0.31 mg/dL (0.20-1.00); TOTAL PROTEIN 5.5 g/dL (6.3-8.3)
[2016-10-08 15:59] LABS: AGAP 7; BUN 9 mg/dL (8-22); CHLORIDE 104 mmol/L (98-107); COSMO 273; GOT 23 U/L (10-34); POTASSIUM 3.4 mmol/L (3.5-5.1); PREALBUMIN 11.4 mg/dL (20-40); SODIUM 137 mmol/L (136-145); TCO2 26 mmol/L (25-35); TRIGLYCERIDES 67 mg/dL (39-160)
[2016-10-08] MEDS: [UNRECOGNIZED DRUG - OTHER] IV SCH ×9 (16:19)
[2016-10-08] MEDS: TPN ELECTROLYTES IV SCH ×9 (16:19)
[2016-10-08] MEDS: POTASSIUM CHLORIDE IV SCH ×9 (16:19)
[2016-10-08] MEDS: LIPOSYN 20% 250 ML IV SCH (16:19)
[2016-10-08] MEDS: MAGNESIUM SULFATE IV SCH ×9 (16:19)
[2016-10-09] MEDS: MORPHINE IV PRN ×5 (00:18→21:03)
[2016-10-09] MEDS: HEPARIN SUBQ SCH ×3 (00:19→16:31)
[2016-10-09] MEDS: PEPCID IV SCH ×2 (00:19→14:08)
[2016-10-09] MEDS: ZOSYN 3.375 GM/NS 3.375 GM/50 ML IVPB IV SCH ×4 (03:01→21:03)
[2016-10-09] MEDS: NS 1,000 ML IV SCH ×2 (04:40→16:30)
[2016-10-09 06:04] LABS: AGAP 8; BUN 11 mg/dL (8-22); CALCIUM 7.9 mg/dL (8.8-10.2); CHLORIDE 104 mmol/L (98-107); COSMO 277; SODIUM 139 mmol/L (136-145); TCO2 27 mmol/L (25-35)
[2016-10-09] MEDS: PERIDEX MT SCH ×2 (08:24→21:09)
--- NOTE | 2016-10-09 09:25 | PROGRESS NOTE ---
DATE: 10/09/2016 SUBJECTIVE: Mr. Jovanni Galvez is a 51-year-old white male, patient of Dr. Placido Ramirez, who underwent an open sigmoid resection with end colostomy for a perforated sigmoid colon on 09/30/2016. A drain was left in the pelvis at the time of surgery. He is on the floor. His abdomen remains distended, and he has had no output from his end colostomy. He is on TPN. OBJECTIVE: He is awake and cooperative. His heart rate is 73. Blood pressure 130/82. O2 saturation 98%. He has no work of breathing. He is voiding without a Leblanc. His urine output is good. His BUN and creatinine are 11 and 0.5. All the rest of his electrolytes are within normal limits. He has not had a recent white blood cell count. His midline incision seems to be healing well. He does have some weakness involving his left leg; the etiology is uncertain. We need to limit his narcotics, try to increase his activity in hopes that his bowels will begin to function. I did remove his SOCORRO drain which was essentially not draining this morning. cc: MD Placido Maldonado MD
[2016-10-09] MEDS: LIPOSYN 20% 250 ML IV SCH ×2 (14:08→18:01)
[2016-10-09] MEDS: SODIUM CHLORIDE 0.9% INJ SCH (15:16)
[2016-10-09] MEDS: [UNRECOGNIZED DRUG - OTHER] IV SCH ×9 (18:58)
[2016-10-09] MEDS: POTASSIUM CHLORIDE IV SCH ×9 (18:58)
[2016-10-09] MEDS: MAGNESIUM SULFATE IV SCH ×9 (18:58)
[2016-10-09] MEDS: TPN ELECTROLYTES IV SCH ×9 (18:58)
[2016-10-10] MEDS: HEPARIN SUBQ SCH ×3 (01:09→16:40)
[2016-10-10] MEDS: PEPCID IV SCH ×2 (01:09→13:11)
[2016-10-10] MEDS: MORPHINE IV PRN ×5 (01:09→20:48)
[2016-10-10] MEDS: NS 1,000 ML IV SCH ×4 (02:29→17:26)
[2016-10-10] MEDS: SODIUM CHLORIDE 0.9% INJ SCH ×2 (02:30→13:11)
[2016-10-10] MEDS: ZOSYN 3.375 GM/NS 3.375 GM/50 ML IVPB IV SCH ×4 (03:01→22:00)
[2016-10-10 07:13] LABS: AGAP 10; BUN 9 mg/dL (8-22); CALCIUM 8.1 mg/dL (8.8-10.2); CHLORIDE 104 mmol/L (98-107); COSMO 279; MAGNESIUM 2.1 mg/dL (1.5-2.7); POTASSIUM 4.2 mmol/L (3.5-5.1); SODIUM 140 mmol/L (136-145); TCO2 26 mmol/L (25-35)
[2016-10-10] MEDS: PERIDEX MT SCH ×2 (09:36→20:48)
--- NOTE | 2016-10-10 11:36 | PROGRESS NOTE ---
DATE: 10/10/2016 SUBJECTIVE: Mr. Galvez is a 51-year-old white male, patient Dr. Placido Ramirez, who is now postop day 10 from a sigmoid resection with end colostomy for intra-abdominal infection. A CT scan on 10/07/2016 showed multiple loculated fluid collections between the loops of bowel and several distended loops of bowel consistent with a postoperative ileus. OBJECTIVE: General: Today he is awake, cooperative. Abdomen: Remains distended. He states that he did have some flatus out into his bag but no stool. He is not eating well but he is on peripheral nutrition. Vital signs: His heart rate is 72, blood pressure 134/79, O2 saturation is 99%. I removed his SOCORRO drain yesterday. He is voiding without difficulty. His urine output is adequate. His sugar is well controlled. His BUN and creatinine are 9 and 0.5. He is afebrile. He is on IV Zosyn. He does have some weakness of his left lower extremity of uncertain etiology. PLAN: We will check a CBC tomorrow. We need to continue to increase his activity. Physical therapy has been consulted. His midline wound seems to be healing well. His ostomy is viable. cc: MD Placido Maldonado MD
[2016-10-10] MEDS: LIPOSYN 20% 250 ML IV SCH ×2 (13:11→16:23)
[2016-10-10] MEDS: TPN ELECTROLYTES IV SCH ×9 (19:27)
[2016-10-10] MEDS: [UNRECOGNIZED DRUG - OTHER] IV SCH ×9 (19:27)
[2016-10-10] MEDS: POTASSIUM CHLORIDE IV SCH ×9 (19:27)
[2016-10-10] MEDS: MAGNESIUM SULFATE IV SCH ×9 (19:27)
[2016-10-11] MEDS: MORPHINE IV PRN ×5 (00:01→22:21)
[2016-10-11] MEDS: HEPARIN SUBQ SCH ×3 (00:02→17:47)
[2016-10-11] MEDS: PEPCID IV SCH ×2 (00:02→12:58)
[2016-10-11] MEDS: SODIUM CHLORIDE 0.9% INJ SCH ×2 (00:02→12:58)
[2016-10-11] MEDS: ZOSYN 3.375 GM/NS 3.375 GM/50 ML IVPB IV SCH ×5 (03:18→22:17)
[2016-10-11 05:34] LABS: BASO% 0.5 % (0.0-0.8); EOS# 0.38 X1000 (0.0-0.7); HEMATOCRIT 32.7 % (42.0-52.0); HEMOGLOBIN 10.8 g/dL (14.0-18.0); IMM GRAN# 0.04 X1000 (0.0-0.04); IMM GRAN% 0.3 % (0.0-0.5); LYMPH# 1.42 X1000 (1.2-3.4); LYMPH% 11.2 % (20.5-51.1); MCH 30.7 PG (27-31); MCV 92.9 FL (81-99); MONO# 0.93 X1000 (0.11-0.59); MONO% 7.3 % (1.7-9.3); MPV 10.2 FL (7.4-10.4); NEUT% 77.7 % (42.2-75.2); PLT 435 X1000 (130-400); RBC 3.52 XMIL (4.7-6.1)
[2016-10-11 05:36] LABS: MANUAL DIFF NEEDED? NO
[2016-10-11 05:50] LABS: AGAP 9; BUN 9 mg/dL (8-22); CALCIUM 8.5 mg/dL (8.8-10.2); CHLORIDE 103 mmol/L (98-107); COSMO 279; SODIUM 140 mmol/L (136-145); TCO2 28 mmol/L (25-35)
--- NOTE | 2016-10-11 06:27 | PROGRESS NOTE ---
DATE: 10/11/2016 SUBJECTIVE: Patient doing okay. His nausea is improved. He does have somewhat of an appetite. He has been ambulating slightly more. OBJECTIVE: Vital Signs: Patient is currently afebrile. His vital signs are stable. General Examination: No acute distress. Cardiovascular: Regular rate and rhythm. Lungs: Grossly clear. Abdomen: Soft, nondistended. Incision is healing well. Ostomy viable. Patient does report he had recent air evacuation and his ostomy appliance burped. Laboratory: White blood cell count is 12 which is down from the day of admission which was 18, hematocrit 32, platelet count 435,000. ASSESSMENT/PLAN: A 51-year-old, male, is now postoperative day #11 from Demarco's procedure for perforated sigmoid colon. 1. Postoperative state. At this time, patient is doing well. We will advance him to a GI soft diet and give him Ensure so hopefully he will start to have some degree of ostomy output. 2. Severe protein malnutrition. At this time, I do not think that he is able to take in enough protein orally yet. We will keep him on total parenteral nutrition. 3. Deconditioning. At this time, the patient will need to work with physical therapy. We will have them adjust the knee stabilizer to help with mobilization. 4. Left femoral nerve neuropathy. At this time, we will continue to monitor. The etiology is unclear at this point. cc: Placido Ramirez MD
[2016-10-11] MEDS: PERIDEX MT SCH ×2 (08:37→22:17)
[2016-10-11] MEDS: LIPOSYN 20% 250 ML IV SCH ×2 (12:59→18:03)
--- NOTE | 2016-10-11 15:47 | PROGRESS NOTE ---
DATE: 10/11/2016 Mr. Galvez is awake and alert. On bedside exam, I believe there may be slight improvement in the left iliopsoas power. He continues very weak in the quadriceps. There is no new deficit. I encouraged him to be careful with his activities. He reports he was able to stand and walk with physical therapy assistance concentrating on keeping his leg extended without knee brace. No new suggestion today from neurologic standpoint. cc: MD Placido Santos III, MD MTDD
[2016-10-11] MEDS: TPN ELECTROLYTES IV SCH ×8 (17:52)
[2016-10-11] MEDS: [UNRECOGNIZED DRUG - OTHER] IV SCH ×8 (17:52)
[2016-10-11] MEDS: MAGNESIUM SULFATE IV SCH ×8 (17:52)
[2016-10-11] MEDS: POTASSIUM CHLORIDE IV SCH ×8 (17:52)
[2016-10-11] MEDS: NS 1,000 ML IV SCH (17:52)
[2016-10-12] MEDS: NS 1,000 ML IV SCH ×4 (02:12→18:19)
[2016-10-12] MEDS: PEPCID IV SCH ×2 (02:13→14:48)
[2016-10-12] MEDS: SODIUM CHLORIDE 0.9% INJ SCH ×3 (02:13→14:48)
[2016-10-12] MEDS: HEPARIN SUBQ SCH ×3 (02:15→16:47)
[2016-10-12] MEDS: ZOSYN 3.375 GM/NS 3.375 GM/50 ML IVPB IV SCH ×4 (04:46→22:27)
[2016-10-12 06:09] LABS: AGAP 9; BUN 12 mg/dL (8-22); CALCIUM 8.9 mg/dL (8.8-10.2); CHLORIDE 105 mmol/L (98-107); COSMO 281; MAGNESIUM 1.9 mg/dL (1.5-2.7); POTASSIUM 4.3 mmol/L (3.5-5.1); SODIUM 141 mmol/L (136-145); TCO2 27 mmol/L (25-35)
--- NOTE | 2016-10-12 09:09 | PROGRESS NOTE ---
DATE: 10/12/2016 SUBJECTIVE: Patient doing well. Tolerating a GI soft diet. Having more air in his appliance, small amount of liquid. OBJECTIVE: Vital Signs: Patient is currently afebrile. His vital signs are stable. General Examination: No acute distress. Cardiovascular: Regular rate and rhythm. Lungs: Grossly clear. Abdomen: Soft, nondistended. Incision is healing well. Ostomy viable. Laboratory: None from this morning. ASSESSMENT AND PLAN: A 51-year-old, male, now postop day #12 from Demarco's procedure for perforated sigmoid colon. 1. Postoperative state. At this time, the patient is improving. Make sure he can take in enough p.o. to sustain himself. He is having ostomy output. 2. Severe protein malnutrition. At this time, I think he is beginning to be able to take enough p.o. We will have to monitor him, maybe get him off TPN here pretty soon. 3. Deconditioning. At this time, the patient needs to continue to work with physical therapy. He needs to be mobile on his own prior to discharge. I will see if we can get case management to consider rehab placement. This might be logistically difficult. 4. Left femoral nerve neuropathy. At this time, we will continue to monitor. I appreciate neurology's input. cc: Placido Ramirez MD
[2016-10-12] MEDS: MORPHINE IV PRN ×3 (10:10→22:33)
[2016-10-12] MEDS: PERIDEX MT SCH ×2 (10:10→22:27)
[2016-10-12 11:26] LABS: AGAP 11; BUN 13 mg/dL (8-22); CALCIUM 9.2 mg/dL (8.8-10.2); CHLORIDE 103 mmol/L (98-107); COSMO 278; GOT 24 U/L (10-34); POTASSIUM 3.9 mmol/L (3.5-5.1); PREALBUMIN 17.5 mg/dL (20-40); SODIUM 139 mmol/L (136-145); TCO2 25 mmol/L (25-35); TRIGLYCERIDES 62 mg/dL (39-160)
--- NOTE | 2016-10-12 14:17 | PROGRESS NOTE ---
DATE: 10/12/2016 Mr. Galvez demonstrates definite improved power in the left iliopsoas today. He is able to raise his left leg much more briskly. I still do not see definite recovery in the left quadriceps. I encouraged him again to be careful with gait and activities. I believe we are seeing expected spontaneous recovery and I am hopeful that will continue. No new suggestion from a neurologic standpoint today. cc: MD Placido Santos III, MD
[2016-10-12] MEDS: LIPOSYN 20% 250 ML IV SCH (14:47)
[2016-10-12] MEDS: POTASSIUM CHLORIDE IV SCH ×8 (17:58)
[2016-10-12] MEDS: MAGNESIUM SULFATE IV SCH ×8 (17:58)
[2016-10-12] MEDS: TPN ELECTROLYTES IV SCH ×8 (17:58)
[2016-10-12] MEDS: [UNRECOGNIZED DRUG - OTHER] IV SCH ×8 (17:58)
[2016-10-13] MEDS: HEPARIN SUBQ SCH ×3 (02:53→17:01)
[2016-10-13] MEDS: SODIUM CHLORIDE 0.9% INJ SCH ×2 (02:53→13:50)
[2016-10-13] MEDS: PEPCID IV SCH ×2 (02:53→13:50)
[2016-10-13] MEDS: ZOSYN 3.375 GM/NS 3.375 GM/50 ML IVPB IV SCH ×4 (05:15→22:30)
[2016-10-13 06:10] LABS: AGAP 10; BUN 13 mg/dL (8-22); CALCIUM 8.8 mg/dL (8.8-10.2); CHLORIDE 104 mmol/L (98-107); COSMO 280; GOT 23 U/L (10-34); PREALBUMIN 16.4 mg/dL (20-40); SODIUM 140 mmol/L (136-145); TCO2 26 mmol/L (25-35); TRIGLYCERIDES 54 mg/dL (39-160)
--- NOTE | 2016-10-13 07:17 | PROGRESS NOTE ---
DATE: 10/13/2016 SUBJECTIVE: Patient doing well and tolerating a GI diet. No major issues. No nausea. OBJECTIVE: Vital Signs: Patient is currently afebrile. His vital signs are stable. General: No acute distress. Cardiovascular: Regular rate and rhythm. Lungs: Grossly clear. Abdomen soft, nondistended. Incision healing well. Ostomy is viable. Laboratory from yesterday reviewed. Of note, his pre-albumin is 17.5. ASSESSMENT AND PLAN: A 51-year-old male, now postop day #13 from Demarco's procedure for perforated sigmoid colon. 1. Postoperative state at this time: Patient is clinically improving. I will 1 /2 the rate of his total parenteral nutrition and stop it after this current bag and see how well he sustains himself just on p.o. intake. 2. Severe protein malnutrition. Please see above, but we will stop his total parenteral nutrition today. 3. Deconditioning. At this time, patient needs to continue to work with physical therapy. 4. Left femoral nerve neuropathy. At this time, patient seems to making some improvement. I appreciate neurology's help. cc: Placido Ramirez MD [facility] CENTERCharlene
[2016-10-13] MEDS: LIPOSYN 20% 250 ML IV SCH (07:46)
[2016-10-13] MEDS: NS 1,000 ML IV SCH (07:50)
[2016-10-13] MEDS: PERIDEX MT SCH ×2 (10:11→19:57)
[2016-10-13] MEDS: MORPHINE IV PRN ×4 (13:43→22:51)
--- NOTE | 2016-10-13 14:20 | PROGRESS NOTE ---
DATE: 10/13/2016 Mr. Galvez is awake and alert. His spirits seem good. He was able to raise his left leg at the hip. He still is not able to extend his left leg at the knee. There is no new neurologic deficit. I encouraged him to be aggressive with his nutrition and to be careful with his gait. He reports he has been able to stand and walk, concentrating on keeping his left knee extended. No new suggestions. cc: MD Placido Santos III, MD
[2016-10-14] MEDS: PERIDEX MT SCH ×3 (01:21→22:30)
[2016-10-14] MEDS: PEPCID IV SCH ×2 (01:55→15:06)
[2016-10-14] MEDS: SODIUM CHLORIDE 0.9% INJ SCH ×2 (01:55→15:06)
[2016-10-14] MEDS: HEPARIN SUBQ SCH ×3 (01:55→19:42)
[2016-10-14] MEDS: ZOSYN 3.375 GM/NS 3.375 GM/50 ML IVPB IV SCH (05:00)
[2016-10-14] MEDS: MORPHINE IV PRN ×3 (05:28→22:30)
[2016-10-14 06:19] LABS: AGAP 11; BUN 18 mg/dL (8-22); CHLORIDE 100 mmol/L (98-107); COSMO 279; POTASSIUM 4.2 mmol/L (3.5-5.1); SODIUM 139 mmol/L (136-145); TCO2 28 mmol/L (25-35)
--- NOTE | 2016-10-14 06:19 | PROGRESS NOTE ---
DATE: 10/14/2016 SUBJECTIVE: Patient doing well. Tolerated GI diet. No major issues. He was able to mobilize in the sol with physical therapy yesterday. OBJECTIVE: Vital Signs: Patient is currently afebrile. His vital signs are stable. General: No acute distress. Cardiovascular: Regular rate and rhythm. Lungs: Grossly clear. Abdomen: Soft, nondistended. Incision is healing well. Ostomy is viable. LABORATORY: None from today. ASSESSMENT AND PLAN: A 51-year-old male, now postop day #14 from Demarco's procedure for perforated sigmoid colon. 1. Postoperative state. At this time, patient is clinically improving. He is off his total parenteral nutrition. He is off his IV fluids. I will stop his IV antibiotics since he has had 2 weeks of antibiotics. We will have the nurses remove his ray since he is 14 days out. 2. Severe protein malnutrition. At this time, patient is off his total parenteral nutrition. He is purely on p.o. intake. 3. Deconditioning. At this time, patient continues to work with Physical Therapy. He wants to go home we will arrange with criminal justice social worker for home medical equipment. 4. Left femoral nerve neuropathy. At this time, patient seems to be making improvement. We will continue to monitor. I appreciate Neurology's help. cc: Placido Ramirez MD
[2016-10-14] MEDS: NORCO-10 PO PRN ×3 (10:51→19:39)
[2016-10-15] MEDS: HEPARIN SUBQ SCH ×3 (02:14→17:57)
[2016-10-15] MEDS: SODIUM CHLORIDE 0.9% INJ SCH ×2 (02:15→14:43)
[2016-10-15] MEDS: PEPCID IV SCH ×2 (02:15→14:43)
[2016-10-15] MEDS: NORCO-10 PO PRN ×4 (04:16→21:47)
[2016-10-15 07:13] LABS: AGAP 10; BUN 27 mg/dL (8-22); CALCIUM 9.7 mg/dL (8.8-10.2); CHLORIDE 100 mmol/L (98-107); COSMO 283; MAGNESIUM 2.1 mg/dL (1.5-2.7); POTASSIUM 4.3 mmol/L (3.5-5.1); SODIUM 139 mmol/L (136-145); TCO2 29 mmol/L (25-35)
[2016-10-15] MEDS: PERIDEX MT SCH ×2 (07:59→21:48)
--- NOTE | 2016-10-15 12:04 | PROGRESS NOTE ---
DATE: 10/15/2016 SUBJECTIVE: Patient is doing well. Tolerating GI diet. No major issues. He continues to mobilize with physical therapy. OBJECTIVE: Vital Signs: Patient is currently afebrile. His vital signs stable. General: No acute distress. Cardiovascular: Regular rate and rhythm. Lungs: Grossly clear. Abdomen: Soft, nondistended. Incision is healing well. Ostomy viable. Extremities: Left leg is improving overall. LABORATORY: None. ASSESSMENT AND PLAN: A 51-year-old male, now postop day 15 from Demarco's procedure for perforated diverticulitis. 1. Postoperative state. At this time, patient is clinically improving. My goal is to have him discharged in the next 24-48 hours. He is to continue to mobilize with physical therapy as best he can. He is off his antibiotics and his ray have been removed. 2. Severe protein malnutrition. At this time, patient is off his TPN and tolerating p.o. 3. Deconditioning. At this time, patient continues to work with physical therapy. 4. Left femoral nerve neuropathy. At this time, he seems to be improving. We will continue to monitor. cc: Placido Ramirez MD
[2016-10-16] MEDS: PEPCID IV SCH (01:11)
[2016-10-16] MEDS: HEPARIN SUBQ SCH (01:11)
[2016-10-16] MEDS: SODIUM CHLORIDE 0.9% INJ SCH (01:12)
[2016-10-16] MEDS: NORCO-10 PO PRN ×3 (01:45→11:20)
[2016-10-16 06:08] LABS: AGAP 9; BUN 30 mg/dL (8-22); CALCIUM 10.1 mg/dL (8.8-10.2); CHLORIDE 101 mmol/L (98-107); COSMO 291; MAGNESIUM 2.1 mg/dL (1.5-2.7); POTASSIUM 5.1 mmol/L (3.5-5.1); SODIUM 143 mmol/L (136-145); TCO2 33 mmol/L (25-35)
[2016-10-16 07:47] VITALS: BP 131/79
--- NOTE | 2016-10-17 03:27 | DISCHARGE SUMMARY ---
ADMISSION DATE: 09/30/2016 DISCHARGE DATE: 10/16/2016 ADMITTING DIAGNOSIS: Perforated diverticulitis. DISCHARGE DIAGNOSIS: Status post Demarco's procedure for perforated diverticulitis. ADMITTING PHYSICIAN: Dr. Placido Ramirez. CONSULTS: Dr. Cain with neurology. PROCEDURES: On 09/30/2016, the patient underwent exploratory laparotomy with Demacro's procedure. BRIEF HISTORY AND COURSE OF STAY: The patient is a 51-year-old, male presenting with a perforated hollow viscus. He was initially seen at the [facility] and transferred over to [facility]. Underwent exploratory laparotomy with end colostomy for perforated diverticulitis. His initial postoperative course was complicated by an ileus. He also had severe protein malnutrition which we started him initially on TPN. He improved clinically, although he did develop a left femoral nerve neuropathy of unknown etiology. I consulted Dr. Cain with neurology who saw. An extensive workup was done but no obvious etiology was identified. His leg slowly improved. He, over the course of 2 weeks, improved. He had a full 2 week course of antibiotics. He was transitioned over to p.o. intake which he tolerated. At the day of discharge, he was afebrile, mobilizing, tolerating p.o., having some ostomy output but significant air output from his ostomy, and overall doing well. He had everything arranged to be discharged home. It was felt that this would be a safe plan. Discussed extensively with the patient any kind of fears of being discharged. He had none at the time. Therefore, we felt it was safe for him to be discharged. He is supposed to follow up with me in 1-2 weeks. DISPOSITION: Home. DISCHARGE CONDITION: Stable. FOLLOWUP: Follow up with myself in 1-2 weeks. PRESCRIPTIONS: Patient was give a prescription for pain medicine. cc: Placido Ramirez MD
== END 2016-10-16 11:44 | disposition home or self-care (01) ==
LOC: P.ED 15:04 → 4N 23:03
PROVIDERS: ADMIT Surgery; ATTEND Surgery
PROC: GE.COLS (2016-09-30 19:40)